=== PATIENT | female | born 1970 | race Caucasian/White ===

== ENCOUNTER → 2020-01-26 | Outpatient (CLI) | payer OTHER ==
[~2020-01-26] MED LIST: ALLEGRA ALLERGY60 MG PO; ASA81BEC PO; AUGMENTIN400 MG/53 PO; BUPROPION HCL200 M1 PO; CELEXA20 MG PO; CLEOCIN HCL150 MG PO; DOXYCYCLINE 10100 MG PO; FIBER500 MG PO; FLEXERIL PO; GLIPIZIDE XL2.5 MG PO; GLUCOPHAGE1000 MG PO; INVOKANA300 MG PO; LANTUS SUBQ; MELOXICAM7.5 MG PO; MULTI VITAMIN1 EACH PO; NEURONTIN300 MG PO; NOVOLOG100 UNIT/M SUBQ; PEPCID AC20 MG PO; SIMVASTATIN40 MG PO; SSD CREAM 1% 5050 GM TOP; TOLCYLEN7.5 ML TOP; TRAMADOL 50 MG50 MG PO; VITAMIN B-121000 MC2 SUBLING; [UNRECOGNIZED DRUG - REMARK] MISCELL
== END ==
LOC: SJCVCIMAG 07:12
PROVIDERS: ATTEND Podiatrist Foot & Ankle Surgery
DX: Z01.818 Encounter for other preprocedural examination (principal); I73.9 Peripheral vascular disease, unspecified; M79.605 Pain in left leg

== ENCOUNTER 2020-02-02 10:27 | Day surgery (SDC) | payer OTHER ==
[~2020-02-02] VITALS: Ht 177.8 cm; Wt 100.7 kg
--- NOTE | ~2020-02-02 | O ---
[facility] [place] [address] OPERATIVE REPORT Name: ANJANA GRIGSBY Room #: DEP [facility] [place] [place] M.R.#: [id number] Admission: 02/02/20 Attend Phys: Michael Jordan DPM Discharge: 02/02/20 Date of : 68 Report #: [id number] THIS REPORT FOR: cc: Indira Adrian MD,Michael Chang MD, DPM ~ CC: Michael Adrian SURGEON: Michael Jordan DPM PROCEDURE: Amputation, left second toe at MTP joint with primary closure. ANESTHESIA: MAC. INJECTABLES: 30 mL of a 1:1 mixture of 0.5% Marcaine plain and 1% lidocaine plain. ESTIMATED BLOOD LOSS: Minimal. HEMOSTASIS: Left ankle pneumatic tourniquet at 250 mmHg. SUTURES: 3-0 nylon. SPECIMENS: Left second toe. CULTURES: 1. Bone, left second toe, aerobic and anaerobic. 2. Soft tissue, left second toe, aerobic and anaerobic. COMPLICATIONS: None. DESCRIPTION OF PROCEDURE: The patient brought to the OR and placed on the table supine with induction of MAC anesthesia. A well-padded left ankle pneumatic tourniquet was placed. A local anesthetic block was given and the extremity was prepped and draped aseptically. After exsanguination, a surgical scalpel was used to create a circumferential incision around the second MTP joint. Layered anatomic dissection utilized with electrocautery for hemostasis. The toe was disarticulated at the MTP joint, and there are no signs of infection at this level. The soft tissue and tendons were debrided as well as the skin to facilitate primary closure. The skin was closed with 3-0 nylon in simple interrupted fashion with complete coaptation of the surgical site. The foot was cleansed and dried and the tourniquet was deflated with normal vascular return. Sterile compressive bandage was applied to the foot. A portion of bone from just distal phalanx of the left second toe was sent for culture, as well as the [address] [address] OPERATIVE REPORT Name: ANJANA GRIGSBY [facility] Room #: DEP [facility] [place] [place] M.R.#: [id number] Admission: 02/02/20 Attend Phys: Michael Jordan DPM Discharge: 02/02/20 Date of : 68 Report #: [id number] surrounding soft tissue from the ulceration. The toe was sent for pathology. The patient left the OR with no pain or complications noted. By: [id number] Michael Jordan DPM /nt
[~2020-02-02 10:27] MED LIST changes: -[UNRECOGNIZED DRUG - REMARK] MISCELL
[2020-02-02 11:19] LABS: HEMATOCRIT 41.6 % (37.0-47.0); HEMOGLOBIN 13.8 gm/dL (12.0-15.0); MCHC 33.1 g/dL (28.0-37.0); MCV 84.6 fL (80.0-100.0); RBC 4.91 mil/uL (4.20-5.00); RDW 14.5 % (10.5-14.5); WBC 9.6 thou/uL (4.0-11.0)
[2020-02-02 11:22] LABS: CALCIUM 8.9 mg/dL (8.5-10.1); CREATININE 0.9 mg/dL (0.6-1.0); POTASSIUM 4.6 mmol/L (3.5-5.1)
[2020-02-02 11:27] LABS: ALBUMIN 3.5 g/dL (3.4-5.0); TOTAL BILIRUBIN 0.3 mg/dL (0.2-1.0); TOTAL PROTEIN 7.2 g/dL (6.4-8.2)
[2020-02-02 11:29] VITALS: BP 131/63
--- NOTE | 2020-02-02 12:48 | EKG ---
[facility] [place] [address] ELECTROCARDIOGRAM REPORT Name: ANJANA GRIGSBY Room #: REG [facility] M.R.#: [id number] Admission: 02/02/20 Attend Phys: Michael Jordan DPM Discharge: Date of : 68 Report #: [id number] THIS REPORT FOR: cc: Indira Adrian MD, Pamela MD Couchonnal, Luis F. 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
[2020-02-02] MEDS ORDERED: [UNRECOGNIZED DRUG - REMARK] MISCELL (12:56)
[2020-02-02 13:20] VITALS: BP 131/63
--- NOTE | 2020-02-03 17:15 | PATH ---
[facility] [address] [place] [address] PATHOLOGY RPT PROCEDURE Name: ANJANA GRIGSBY RADHA Room #: DEP [facility] M.R.#: [id number] Admission: 02/02/20 Date of : 68 Discharge: 02/02/20 Report #: [id number] Path Case #: [id number] [facility] Accession Number: [id number] . 01 Material submitted: . toe - LEFT SECOND TOE. Modifiers: left, second . 01 Clinical history: . Osteomyelitis . 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 - Bone showing acute osteomyelitis. - Surgical margin of bone viable and unremarkable. (IUV:cherelle 02/03/2020) QMS 02/03/2020 1434 Local . 02 Electronically signed: . Kathe Green MD, Pathologist NPI- [id number] . 01 Gross description: . The specimen is received in formalin, labeled "Anjana Cruz, left second toe". Received is an amputated digit measuring 5.1 x 2.3 x 2.3 cm in greatest dimensions. The bone margin is smooth and concave in appearance, consistent with disarticulation. The bone and soft tissue margins are inked black. The nail is not grossly identified. At the distal/plantar aspect of the specimen, there is a well-circumscribed, irregular in contour, crusted to ulcerated pink-sandhu to light sandhu lesion measuring 2.5 x 2.4 cm, which is 1.0 cm from the closest skin margin. Underlying bone is exposed in the center of the lesion. A full-thickness longitudinal cross-section is submitted from proximal to distal aspects in cassettes A1 through A3, following decalcification. (CAA; 02/02/2020) QAC/QAC 02/02/2020 1646 Local . 02 Pathologist provided ICD-10: L97.529, M87.9, M86.172 . 02 CPT . 619829, 034888 Specimen Comment: A courtesy copy of this report has been sent to [phone], [phone] Specimen Comment: [phone] Specimen Comment: Report sent to / [place] [address] PATHOLOGY RPT PROCEDURE Name: ANJANA GRIGSBY RADHA Room #: DEP [facility] M.Maxwell#: [id number] Admission: 02/02/20 Date of : 68 Discharge: 02/02/20 Report #: [id number] Path Case #: [id number] Performed at: 01 [facility] [address], [place], [place] [id number] MD Mikey Nolen MD Phone: [phone] Performed at: [address] [id number] MD Kathe Green MD Phone: [phone]
== END 2020-02-02 13:09 | disposition home or self-care (01) ==
LOC: OR 10:27 → EDSTATUS 11:33 → OR 11:34 → TBA 12:51 → OR 13:09
PROVIDERS: ATTEND Podiatrist Foot & Ankle Surgery
DX: M86.172 Other acute osteomyelitis, left ankle and foot (principal); L97.529 Non-pressure chronic ulcer of other part of left foot with unspecified severity; M87.9 Osteonecrosis, unspecified; E11.9 Type 2 diabetes mellitus without complications; F32.9 Major depressive disorder, single episode, unspecified; F41.9 Anxiety disorder, unspecified; F17.210 Nicotine dependence, cigarettes, uncomplicated; K21.9 Gastro-esophageal reflux disease without esophagitis; Z98.890 Other specified postprocedural states; Z11.59 Encounter for screening for other viral diseases; Z79.899 Other long term (current) drug therapy; Z79.4 Long term (current) use of insulin; Z79.82 Long term (current) use of aspirin; Z90.49 Acquired absence of other specified parts of digestive tract; Z90.710 Acquired absence of both cervix and uterus; Z86.73 Personal history of transient ischemic attack (TIA), and cerebral infarction without residual deficits; Z98.41 Cataract extraction status, right eye; Z98.42 Cataract extraction status, left eye; Z88.2 Allergy status to sulfonamides; Z88.8 Allergy status to other drugs, medicaments and biological substances
CPT/HCPCS: 50010; 50101; 50386; 56527; 57091; 62110; 62850; 70005